=== PATIENT | male | born 1930 | race Two or more races ===

== ENCOUNTER 2018-03-01 07:45 | Outpatient (CLI) | payer OTHER | END 2018-03-01 07:48 | disposition home or self-care (01) | LOC: SONOGRAMA 07:45 | DX: R10.9 Unspecified abdominal pain (principal); N18.3 Chronic kidney disease, stage 3 (moderate); R31.9 Hematuria, unspecified ==

== ENCOUNTER 2018-03-29 09:19 | Outpatient (CLI) | payer OTHER ==
[~2018-03-29] VITALS: Ht 152.4 cm; Wt 72.6 kg
== END 2018-03-29 09:35 | disposition home or self-care (01) ==
LOC: OFIC 805 09:19
DX: H61.23 Impacted cerumen, bilateral (principal); R42 Dizziness and giddiness; H81.43 Vertigo of central origin, bilateral; H90.3 Sensorineural hearing loss, bilateral; H60.8X3 Other otitis externa, bilateral

== ENCOUNTER 2018-03-29 11:25 | Outpatient (CLI) | payer OTHER | END 2018-03-29 15:00 | disposition home or self-care (01) | LOC: LAB 11:25 | DX: R42 Dizziness and giddiness (principal); Z51.81 Encounter for therapeutic drug level monitoring ==

== ENCOUNTER 2018-04-22 10:35 | Outpatient (CLI) | payer OTHER | END 2018-04-22 16:53 | disposition home or self-care (01) | LOC: MRI 10:35 | DX: H81.43 Vertigo of central origin, bilateral (principal); R42 Dizziness and giddiness; H90.3 Sensorineural hearing loss, bilateral | CPT/HCPCS: 70551 ==

== ENCOUNTER 2018-05-10 09:56 | Outpatient (CLI) | payer OTHER ==
[~2018-05-10] VITALS: Ht 152.4 cm; Wt 72.6 kg
== END 2018-05-10 10:15 | disposition home or self-care (01) ==
LOC: OFIC 805 09:56
DX: H90.3 Sensorineural hearing loss, bilateral (principal); H81.49 Vertigo of central origin, unspecified ear

== ENCOUNTER → 2018-08-13 | Outpatient (CLI) | payer OTHER | END | disposition home or self-care (01) | LOC: NUCLEAR 07:51 | DX: I82.409 Acute embolism and thrombosis of unspecified deep veins of unspecified lower extremity (principal) ==

== ENCOUNTER 2018-08-19 11:00 | Outpatient (CLI) | payer OTHER | END 2018-08-19 11:05 | disposition home or self-care (01) | LOC: RAD 11:00 | DX: M46.47 Discitis, unspecified, lumbosacral region (principal) ==